=== PATIENT | female | born 1990 | race Caucasian/White ===

== ENCOUNTER 2017-12-08 12:08 | Emergency (ER) | END 2017-12-08 13:30 | disposition home or self-care (01) ==

== ENCOUNTER 2018-11-21 01:24 | Emergency (ER) | payer OTHER ==
[~2018-11-21] VITALS: Ht 154.9 cm; Wt 53.6 kg
[~2018-11-21 01:24] MED LIST: CEPH-443 PO; HYDR-762 PO; HYDR200T5; IBUP-1542 PO; IBUP-1561 PO; VALA100057 PO
[2018-11-21 01:26] VITALS: Ht 154.9 cm; Wt 53.6 kg
[2018-11-21] MEDS ORDERED: SOD CHLORIDE 0.9% 1,000 ML IV STA (01:43)
[2018-11-21] MEDS ORDERED: NORE1TAB12 PO (04:09)
[2018-11-21 04:24] VITALS: BP 144/95; PULSE 74; RESP 20
--- NOTE | 2018-11-21 05:09 | ERD ---
ER Documentation Chief Complaint Chief Complaint VAGINAL BLEED X'S 12 DAYS WITH FLOW INCREASING HPI 28-year-old female presents with vaginal bleeding. Patient states she has had vaginal bleeding for the last 12 days. She states that the flow of bleeding varies but it can be very heavy. She sometimes has to change her pad every h our. She has been passing clots. She denies any chest pain or palpitations but does occasionally feel dizzy. G3, . Medical history is lupus and kidney disease. NKDA. Surgical history liposuction. Social history denies. ROS All systems reviewed and are negative except as per history of present illness. Medications Home Meds Active Scripts Nore[place] A-Et Estra/Fe Fumarate (LO LOESTRIN FE 1-10 TABLET) 1 Each Tablet, 1 EACH PO DAILY, #28 TAB Prov:AILIN JONES PA-C 11/21/18 Ibuprofen* (Motrin*) 400 Mg Tab, 400 MG PO Q6H PRN for PAIN AND OR ELEVATED TEMP, #30 TAB Prov:ANGÉLICA VARELA PA-C 12/08/17 Cephalexin* (Keflex*) 500 Mg Capsule, 500 MG PO TID for 10 Days, CAP Prov:ANGÉLICA VARELA PA-C 12/08/17 Ibuprofen* (Motrin*) 600 Mg Tab, 600 MG PO Q6, #20 TAB Prov:NATTY BIRD PA-C 09/23/15 Hydrocodone Bit-Acetaminophen* ([place]*) 10-325 Mg Tablet, 1 TAB PO Q6 PRN for PAIN, #10 TAB Prov:NATTY BIRD PA-C 08/27/15 Valacyclovir Hcl* (Valtrex*) 1,000 Mg Tablet, 1000 MG PO TID, #21 TAB 0 Refills Prov:SABRA HAWKINS PA-C 08/25/15 Reported Medications Hydroxychloroquine Sulfate* (Plaquenil*) 200 Mg Tab 12/25/10 Allergies Allergies: Coded Allergies: No Known Drug Allergies (Verified Allergy, Mild, 08/27/15) PMhx/Soc History of Surgery: No Hx Neurological Disorder: No Hx Respiratory Disorders: No Hx Cardiac Disorders: No Hx Miscellaneous Medical Probl: Yes (lupus; shingles) Hx Alcohol Use: Yes (ONCE A MONTH) Hx Substance Use: No Hx Tobacco Use: No Smoking Status: Never smoker FmHx Family History: No diabetes, No coronary disease, No other Physical Exam Vitals Vital Signs Date Temp Pulse Resp B/P (MAP) Pulse Ox O2 O2 Flow FiO2 Time Delivery Rate 11/21/18 98.2 74 20 144/95 100 Room Air 04:24 (111) 11/21/18 97.1 76 18 149/94 95 01:26 (112) Physical Exam GENERAL: The patient is well-appearing, well-nourished, in no acute distress HEENT: Atraumatic. Conjunctivae are pink. Pupils equal, round, and reactive to light. There is no scleral icterus. Tympanic membranes clear bilaterally. Oropharynx clear. NECK: C-spine is soft and supple. There is no meningismus. There is no cervical lymphadenopathy. CHEST: Clear to auscultation bilaterally. There are no rales, wheezes or rhonchi. HEART: Regular rate and rhythm. No murmurs, clicks, rubs or gallops. ABDOMEN:Soft, nontender and nondistended. Good bowel sounds. No rebound or guarding. No gross peritonitis. No gross organomegaly or masses. Result Diagram: 11/21/18 0155 11/21/18 0145 Results 24 hrs Laboratory Tests Test 11/21/18 01:45 11/21/18 01:55 Urine Color STRAW Urine Clarity CLEAR Urine pH 6.0 Urine Specific [place] 1.009 Urine Ketones NEGATIVE mg/dL Urine Nitrite NEGATIVE mg/dL Urine Bilirubin NEGATIVE mg/dL Urine Urobilinogen NEGATIVE mg/dL Urine Leukocyte Esterase NEGATIVE Deondre/ul Urine Microscopic RBC > 182 /HPF Urine Microscopic WBC 8 /HPF Urine Squamous Epithelial Cells FEW /HPF Urine Mucus FEW /HPF Urine Hemoglobin 3+ mg/dL Urine Glucose NEGATIVE mg/dL Urine Total Protein 1+ mg/dl Urine Test NEGATIVE Sodium Level 144 mmol/L Potassium Level 4.0 mmol/L Chloride Level 107 mmol/L Carbon Dioxide Level 27 mmol/L Anion Gap 10 Blood Urea Nitrogen 49 mg/dl Creatinine 3.41 mg/dl Est Glomerular Filtrat Rate mL/min 16 mL/min Glucose Level 76 mg/dl Calcium Level 10.5 mg/dl Total Bilirubin 0.3 mg/dl Direct Bilirubin 0.00 mg/dl Indirect Bilirubin 0.3 mg/dl Aspartate Amino Transf (AST/SGOT) 33 IU/L Alanine Aminotransferase (ALT/SGPT) 17 IU/L Alkaline Phosphatase 52 IU/L Total Protein 8.1 g/dl Albumin 4.2 g/dl Globulin 3.90 g/dl Albumin/Globulin Ratio 1.07 Lipase 269 U/L White Blood Count 9.6 10^3/ul Red Blood Count 4.12 10^6/ul Hemoglobin 12.8 g/dl Hematocrit 38.2 % Mean Corpuscular Volume 92.7 fl Mean Corpuscular Hemoglobin 31.1 pg Mean Corpuscular Hemoglobin Concent 33.5 g/dl Red Cell Distribution Width 11.4 % Platelet Count 365 10^3/UL Mean Platelet Volume 9.4 fl Immature Granulocytes % 0.200 % Neutrophils % 50.9 % Lymphocytes % 38.8 % Monocytes % 6.1 % Eosinophils % 3.2 % Basophils % 0.8 % Nucleated Red Blood Cells % 0.0 /100WBC Immature Granulocytes # 0.020 10^3/ul Neutrophils # 4.9 10^3/ul Lymphocytes # 3.7 10^3/ul Monocytes # 0.6 10^3/ul Eosinophils # 0.3 10^3/ul Basophils # 0.1 10^3/ul Nucleated Red Blood Cells # 0.0 10^3/ul Current Medications Medications Dose Sig/Tan Start Time Status Last (Trade) Ordered Route PRN Stop Time Admin Dose Reason Admin Sodium 1,000 ml @ Q1H STAT 11/21/18 DC 11/21/18 Chloride 1,000 mls/hr IV 01:43 02:33 11/21/18 02:42 Procedures/MDM Radiology Main Line: [phone] DIAGNOSTIC IMAGING REPORT Patient: CED MORALES : 1990 Age: 28 Sex: F MR #: [id number] DOS: 11/21/18 0143 Ordering MD: ROMAN JONES PA-C Location: [facility] Room/Bed: PROCEDURE: Ultrasound of the pelvis. CLINICAL INDICATION: Vaginal bleeding. TECHNIQUE: Transabdominal and transvaginal ultrasound of the pelvis was performed utilizing Doppler flow imaging. COMPARISON: There are no similar studies submitted for comparison. FINDINGS: LAST MENSTRUAL PERIOD: 11/09/2018. UTERUS: Size: 6.9 x 3.5 x 4.1 cm. The uterine texture is homogeneous. The endometrium measures 13 mm which is within normal limits. RIGHT OVARY: Size: 2.5 x 1.3 x 1.8 cm. No ovarian lesion or cyst is identified.Normal Doppler flow is noted to the right ovary. LEFT OVARY: Size: 2.4 x 1.4 x 1.7 cm. No ovarian lesion or cyst is identified.Normal Doppler flow is noted to the left ovary. CUL-DE-SAC: There is no abnormal free fluid. IMPRESSION: Normal endometrium. No evidence of bilateral ovarian torsion. MDM: 28-year-old female presenting with vaginal bleeding. Hemoglobin is stable and ultrasound is within normal limits. Vitals are stable. Patient is not hemodynamically unstable. Patient does have kidney disease noted on her blood work however she has a chronic history of kidney disease. She is currently urinating without any changes. She does have an appointment in 2 weeks with primary doctor. She denies any back pain or changes in urination. Patient is told to follow-up with primary care and to return to the ER if symptoms change or worsen. All questions answered at discharge Departure Diagnosis: Primary Impression: Vaginal bleeding Condition: Stable Patient Instructions: Menorrhagia Referrals: MELLISSA SOLIZ DPM (PCP) Additional Instructions: FOLLOW UP WITH YOUR PRIMARY CARE PHYSICIAN TOMORROW.Return to this facility if you are not improving as expected. AILIN JONES PA-C Nov 21, 2018 05:09
== END 2018-11-21 04:25 | disposition home or self-care (01) ==
LOC: FTE 01:24
DX: N93.9 Abnormal uterine and vaginal bleeding, unspecified (principal)
CPT/HCPCS: 36415; 76830; 76856; 80053; 81001; 83690; 84703; 85025; J7030; Z7502